=== PATIENT | male | born 1945 | race Two or more races ===

== ENCOUNTER 2019-01-14 08:42 | Outpatient (CLI) | payer MEDICARE, OTHER ==
[2019-01-14] MEDS ORDERED: REGADENOSON 0.4 MG/5 ML DISP.SYRIN IVP ONE (09:30)
== END 2019-01-14 23:59 | disposition home or self-care (01) ==
LOC: RAD 08:42 → NM 23:59
PROVIDERS: ATTEND Internal Medicine Interventional Cardiology
DX: I25.10 Atherosclerotic heart disease of native coronary artery without angina pectoris (principal); I25.9 Chronic ischemic heart disease, unspecified; I10 Essential (primary) hypertension
CPT/HCPCS: 78452; A9502; J2785